=== PATIENT | female | born 1980 | race African-American/Black ===

== ENCOUNTER 2020-08-17 21:28 | Emergency (ER) | payer SELFPAY ==
[~2020-08-17] VITALS: Ht 180.3 cm; Wt 71.0 kg
[2020-08-17 22:47] LABS: BASOPHILS % 0.3 % (0.0-2.0); EOSINOPHILS % 4.5 % (0.0-5.0); HEMOGLOBIN. 12.6 g/dL (12.0-16.0); LYMPHOCYTES % 23.7 % (20.0-50.0); MEAN CORPUSCULAR HEMOGLOBIN 24.5 pg (28.0-32.0); MEAN CORPUSCULAR VOLUME 75.8 fL (81.0-99.0); MEAN PLATELET VOLUME 8.9 fl (7.4-10.4); MONOCYTES % 10.9 % (2.0-8.0); NEUTROPHILS % 60.6 % (40.0-76.0); PLATELET 199 x1000/uL (130-400); RED BLOOD CELL COUNT 5.14 mill/uL (4.2-5.4); RED CELL DISTRIBUTION WIDTH 20.6 % (11.6-14.6)
[2020-08-17 23:03] LABS: CHLORIDE 107 mEq/L (98-107)
[2020-08-17 23:05] LABS: HCG SCREEN NEGATIVE
[2020-08-17 23:07] LABS: ETHANOL BLOOD < 10 mg/dL
[2020-08-17] MEDS ORDERED: PHENYTOIN SODIUM EXTENDED 100MG CAPSULE PO ONE (23:45)
[2020-08-17] MEDS ORDERED: LEVETIRACETAM 500MG PREMIX 100 ML IV ONE (23:45)
[2020-08-18 04:18] VITALS: BP 112/75
== END 2020-08-18 04:20 | disposition home or self-care (01) ==
LOC: ER 21:28
DX: R56.9 Unspecified convulsions (principal)
CPT/HCPCS: 36415; 80053; 80185; 80320; 84703; 85025; 93005; 96365; 96366; 99284; J1953; G0480

== ENCOUNTER 2020-08-26 21:28 | Emergency (ER) | payer SELFPAY | END 2020-08-26 23:07 | disposition left against medical advice (07) | LOC: ER 21:28 | DX: Z53.21 Procedure and treatment not carried out due to patient leaving prior to being seen by health care provider (principal) ==